=== PATIENT | female | born 1970 | race Caucasian/White ===

== ENCOUNTER → 2017-07-16 | Outpatient (CLI) | payer BC ==
[~2017-07-16] MED LIST: ADDERALL20 MG PO; ALEVE220 MG PO; BACTRIM DS 8001 TA1 PO; BACTROBAN2% TP; FLEXERIL10 MG PO; MOTRIN 400MG.400 MG PO; NICOTINE T21 MG/24 H TD; OMEPRAZOLE40 MG PO; PERCOCET 5/3251 EACH PO
[2017-07-16 10:50] LABS: HEMOGLOBIN 13.6 g/dL (12.2-16.2); LYMPH # 1.7 K/mm3 (0.7-4.5); LYMPH % 32.6 % (10-50.0)
[2017-07-16 11:45] LABS: BUN 14 mg/dL (7-18); GFR (ESTIMATED) 78 ML/MIN (59-)
[2017-07-18 08:37] LABS: Vitamin D, 25-Hydroxy 28.7 ng/mL (30.0-100.0)
== END ==
LOC: LAB 10:31
PROVIDERS: Nurse Practitioner Family
DX: E53.8 Deficiency of other specified B group vitamins (principal); E55.9 Vitamin D deficiency, unspecified; R10.13 Epigastric pain

== ENCOUNTER → 2017-07-20 | Outpatient (CLI) | payer BC ==
--- NOTE | 2017-07-21 12:08 | RADIOLOGY REPORT PS360 ---
MRI-C-SPINE W/O, MRI-3D RENDERING/MYELOGRAM HISTORY: Worsening neck pain with left arm tingling CERVICAL PAIN ORDERING PHYSICIAN: LEIGH ANN BALTAZAR CRNA PATIENT AGE: 46 years COMPARISON: Radiograph 10/27/2016 TECHNIQUE: Standard multiplanar multiecho sequences are performed without contrast. 3-D MIP and myelographic images are also rendered and reviewed FINDINGS: There is normal alignment. Craniocervical junction has an unremarkable appearance. There is straightening of the cervical lordosis which may be due to patient positioning or muscle spasm. C2-C3 and C3-C4 have an unremarkable appearance. C4-C5: Minimal uncovertebral hypertrophy on the left with minimal left-sided foraminal narrowing. C5-C6: Degenerative disc disease with mild bulging disc with mild bilateral lateral recess and foraminal narrowing from the bulging disc and mild uncovertebral hypertrophy. C6-C7: Unremarkable. C7-T1: Minimal central disc protrusion versus prominent posterior longitudinal ligament without neural impingement. IMPRESSION: 1. Mild cervical spondylosis as detailed above. Please see above for detailed description at each level. 2. Degenerative disc disease with mild bulging disc at C5-C6 with mild bilateral lateral recess and foraminal narrowing and mild left foraminal narrowing at C4-C5 from uncovertebral hypertrophy. 3. Small central disc protrusion versus prominent posterior longitudinal ligaments C7-T1 without impingement 4. No extruded herniated disc or canal stenosis
== END ==
LOC: RAD 07-19 08:00
DX: M54.2 Cervicalgia (principal)

== ENCOUNTER → 2017-08-19 | Day surgery (SDC) | payer BC ==
[~2017-08-19] VITALS: Ht 167.6 cm; Wt 80.7 kg
[2017-08-19 09:06] VITALS: BP 128/74
[2017-08-19 09:19] VITALS: BP 128/74
[2017-08-19 09:20] VITALS: BP 121/73
--- NOTE | 2017-08-19 09:27 | Procedure Note ---
Procedure detail Date of procedure: 08/19/17 Anesthesiologist: Helio Torres Complications: None Pre-procedure diagnosis: Degenerative disc disease cervical spine multiple levels. Multilevel cervical disc bulge. Cervical radiculopathy symptoms Post-procedure diagnosis: Same. Indications for procedure: Very pleasant 46-year-old white female that comes our procedure clinic today for her initial cervical epidural steroid injection. Patient's MRI shows degenerative disease cervical spine multiple levels with multilevel disc bulge. Patient complains of cervical neck pain as well as RIGHT shoulder and arm radicular symptoms. Procedure detail: Procedure:Cervical epidural steroid injection Informed consent was obtained and the risks and benefits of the procedure were explained to the patient. The patient was taken to the procedure room and noninvasive monitors placed, including noninvasive blood pressure cuff and pulse oximeter. The neck was prepped using Betadine as a cleansing solution. The C6-C7 interspace was palpated. The skin and subcutaneous tissues were anesthetized using lidocaine 1.5% and a 25-gauge needle. After this an 18-gauge Touhy epidural needle was placed into the C6-C7 interspace and advanced using loss of resistance to air until the epidural space was encountered. After confirmation of needle placement in the epidural space using fluoroscopy guidance, a solution containing lidocaine 1.5%, 4 mL and Depo-Medrol 80 mg was incrementally injected into the cervical epidural space.~ The patient tolerated the procedure well with no complications. The patient was observed in the Pain Clinic and then discharged home neurologically intact. Plan and disposition: Patient was reevaluated 10 minutes post procedure. She is doing very well. She' ll return to see us in the pain clinic for further evaluation. at [id number]
[2017-08-19 09:30] VITALS: BP 123/74
== END ==
LOC: PM 08:50
PROC: 3E0R3BZ Introduction of Anesthetic Agent into Spinal Canal, Percutaneous Approach (ICD-10-PCS; principal; 2017-08-19)
PROC: 3E0R33Z Introduction of Anti-inflammatory into Spinal Canal, Percutaneous Approach (ICD-10-PCS; 2017-08-19)
DX: M50.10 Cervical disc disorder with radiculopathy, unspecified cervical region (principal)

== ENCOUNTER 2017-09-30 11:01 | Day surgery (SDC) | payer BC ==
[~2017-09-30] VITALS: Ht 167.6 cm; Wt 82.6 kg
[2017-09-30 11:53] VITALS: BP 142/83
[2017-09-30 12:20] VITALS: BP 142/83
[2017-09-30 12:22] VITALS: BP 108/88
--- NOTE | 2017-09-30 12:31 | Procedure Note ---
Procedure detail Date of procedure: 09/30/17 Anesthesiologist: Tomas Melo M.D. Complications: None Pre-procedure diagnosis: Gentle disease of the cervical spine multiple levels with cervical radiculopathy symptoms. Post-procedure diagnosis: Same Indications for procedure: This patient is a pleasant 46-year-old white female who we are treating for neck pain with cervical radiculopathy symptoms. She's had one cervical epidural steroid injection with 80 percent relief in her pain symptoms. She presents for a repeat cervical epidural steroid injection today. Procedure detail: Procedure:Cervical epidural steroid injection Informed consent was obtained and the risks and benefits of the procedure were explained to the patient. The patient was taken to the procedure room and noninvasive monitors placed, including noninvasive blood pressure cuff and pulse oximeter. The neck was prepped using Betadine as a cleansing solution. The C6-C7 interspace was palpated. The skin and subcutaneous tissues were anesthetized using lidocaine 1.5% and a 25-gauge needle. After this an 18-gauge Touhy epidural needle was placed into the C6-C7 interspace and advanced using loss of resistance to air until the epidural space was encountered. After confirmation of needle placement with fluoroscopy in the epidural space, a solution containing lidocaine 1.5%, 4 mL and Depo-Medrol 80 mg was incrementally injected into the cervical epidural space.~ The patient tolerated the procedure well with no complications. The patient was observed in the Pain Clinic and then discharged home neurologically intact. Plan and disposition: We'll follow up with her in 2 weeks. We'll reevaluate her symptoms at that time.
[2017-09-30 12:39] VITALS: BP 138/92
== END 2017-09-30 12:40 | disposition home or self-care (01) ==
LOC: PM 11:01
PROC: 3E0R33Z Introduction of Anti-inflammatory into Spinal Canal, Percutaneous Approach (ICD-10-PCS; principal; 2017-09-30)
PROC: 3E0R3BZ Introduction of Anesthetic Agent into Spinal Canal, Percutaneous Approach (ICD-10-PCS; 2017-09-30)
PROC: B01B1ZZ Fluoroscopy of Spinal Cord using Low Osmolar Contrast (ICD-10-PCS; 2017-09-30)
DX: M50.10 Cervical disc disorder with radiculopathy, unspecified cervical region (principal)
CPT/HCPCS: J1040; Q9966